=== PATIENT | female | born 1965 | race African-American/Black ===

== ENCOUNTER 2017-11-15 21:59 | Emergency (ER) | payer SELFPAY ==
[2017-11-15 22:24] VITALS: BP 109/73; PULSE 64; RESP 18; TEMP 98.4; O2SAT 100
--- NOTE | 2017-11-15 23:24 | PD ---
HPI Chief Complaint: Psychiatric Symptoms Time Seen by Provider: 22:33 Travel History International Travel<30 days: No Contact w/Intl Traveler<30days: No Traveled to known affect area: No History of Present Illness HPI 52-year-old female with no significant medical history or his reported psychiatric history, presents emergency department as a transfer from [facility] for psychiatric evaluation. Patient is mostly nonverbal. She offers very little information. She was found to be acutely psychotic at the previous hospital. Lab work was without acute concern. Urinalysis and drug screen are added here however patient is unwilling to give us anything, fearful we will give it to [facility] Past Medical History Medical History: Denies Significant Hx ?: Not Past Surgical History Surgical History: Unable to Obtain Social History Alcohol Use: No Tobacco Use: No Allergies-Medications (Allergen,Severity, Reaction): Coded Allergies: No Known Allergies (Unverified , 11/15/17) Review of Systems Except as stated in HPI: all other systems reviewed are Neg Physical Exam Narrative GENERAL: Dressed. SKIN: Focused skin assessment warm/dry. HEAD: Atraumatic. Normocephalic. EYES: Pupils equal and round. No scleral icterus. No injection or drainage. ENT: No nasal bleeding or discharge. Mucous membranes pink and moist. NECK: Trachea midline. No JVD. CARDIOVASCULAR: Regular rate and rhythm. No murmur appreciated. RESPIRATORY: No accessory muscle use. Clear to auscultation. Breath sounds equal bilaterally. MUSCULOSKELETAL: No obvious deformities. No clubbing. No cyanosis. No edema. NEUROLOGICAL: Awake unable to assess cranial nerves. Motor grossly within normal limits. Normal speech. Data Data Last Documented VS Vital Signs Date Time Temp Pulse Resp B/P (MAP) Pulse Ox O2 Delivery O2 Flow Rate FiO2 11/15/17 22:24 98.4 64 18 109/73 (85) 100 Room Air Orders Orders Psych Screen (11/15/17 22:24) Urinalysis - C+S If Indicated (11/15/17 22:34) Drug Screen, Random Urine (11/15/17 22:34) [facility] Medical Decision Making Medical Screen Exam Complete: Yes Emergency Medical Condition: Yes Medical Record Reviewed: Yes Differential Diagnosis Mood disorder versus personality disorder versus adjustment reaction disorder versus psychosis NOS Narrative Course 52-year-old female presents emergency department under a Thomas act as a transfer from [facility] for psychiatric evaluation. Patient is offering me little information. Lab work from her previous facility workup is reviewed without acute concern. Patient is medically cleared to undergo psychiatric screening for further evaluation and disposition. Mental health screening discussed with the patient. Psychiatric screen ordered. Diagnosis Primary Impression: Unspecified psychosis Condition: Kandi Miller Nov 15, 2017 23:24
[2017-11-16 04:54] VITALS: BP 121/59; PULSE 66; RESP 16; O2SAT 100
--- NOTE | 2017-11-16 10:18 | PD ---
History of Present Illness Chief Complaint: Psychiatric Symptoms Time Seen by Provider: 09:45 Travel History International Travel<30 Days: No Contact w/Intl Traveler<30days: No Known affected area: No Legal Status Legal Status: Thomas Act Thomas Act Signed By: [facility] [employer] History of Present Illness: History of Present Illness HPI 52-year-old female with no significant medical history, unknown psychiatric history, presents emergency department as a transfer from [facility] under a Thomas act initiated by law enforcement. As per the report the police were called to a commercial property in reference to a suspicious person. When they arrived there the patient was found walking down the sidewalk not seen a word. She is described as" just walking with a blank look on her face". She did not answer questions. Upon arrival to [facility] the patient remained mostly nonverbal. She refused to provide a urine sample stating that she was afraid he was going to [facility]. Patient here at [facility] has continued to refuse to provide urine sample and has remain mostly noncommunicative. EMR is reviewed. No previous contact with [facility] psychiatry. Patient is seen. She is awake and is found eating part of her breakfast. She has a very flat affect. Appears internally preoccupied. She does not answer any questions and states "is this a test and I am responsible for ending this test." Patient does not answer or provide any other information. Telephone call to her mother, Joseline at [phone] to obtain information. Mother states that the patient has no previous psychiatric history and is currently not taking any medications. States that her difficulties began approximately 5 years ago when she began to develop different allergies which she believed where from the result of mold and dust at her job. She began to seek medical attention for her allergies. 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 Her mother has been living with her for the last 3 years and states that the patient has had increase in symptoms for the past few weeks. She has been more isolative, withdrawn, not eating as much and that for the past week she has not been sleeping well. As far as the mother is concerned she has not had treatment for her condition. [facility] Past Medical History Medical History: Denies Significant Hx ?: Not Past Surgical History Surgical History: Unable to Obtain Psychiatric History Psychiatric History Hx Psychiatric Treatment: NONE History of Inpatient Treatment: No Guns or firearms in home: No Social History . 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 She lives with her mother. Hx Alcohol Use: No Hx Tobacco Use: No Hx Substance Use: No Hx of Substance Use Treatment: No Family Psychiatric History None reported Allergies-Medications (Allergen,Severity, Reaction): Coded Allergies: No Known Allergies (Unverified , 11/15/17) Review of Systems ROS Limitations: Psychotic Mental Status Examination Appearance: Other (Wearing [facility] with a blanket and tied around her upper shoulders) Consciousness: Alert Orientation: x4 (Unable to assess) Motor Activity: Normal gait Speech: Other (Mostly noncommunicative) Language: Other (Mostly nonverbal) Fund of Knowledge: Poor (Unable to assess) Attention and Concentration: Inadequate Memory: Impaired Mood: Other (Unable to determine) Affect: Blunt Thought Process & Associations: Other (Unable to assess) Thought Content: Other (Focused on having allergies) Hallucination Type: Other (Appears internally preoccupied) Delusion Type: None, Other Mental Status Exam Remarks Unable to complete mental status due to patient being nonverbal. [facility] Medical Decision Making Medical Record Reviewed: Yes Assessment/Plan 52-year-old female with no significant medical history, unknown psychiatric history, presents emergency department as a transfer from [facility] under a Thomas act initiated by law enforcement. As per the report the police were called to a commercial property in reference to a suspicious person. When they arrived there the patient was found walking down the sidewalk not seen a word. She is described as" just walking with a blank look on her face". She did not answer questions. Patient appears to be internally preoccupied. She has remained nonverbal for the most part. Her only answer was stating if this was a tests and that she had the ability to terminate the test. Patient will remain under the [employer] act she is placed on [facility] list for further evaluation and treatment. Orders Orders Psych Screen (11/15/17 22:24) Urinalysis - C+S If Indicated (11/15/17 22:34) Drug Screen, Random Urine (11/15/17 22:34) Diet Regular Basic (11/16/17 Breakfast) Results Vital Signs Date Time Temp Pulse Resp B/P (MAP) Pulse Ox O2 Delivery O2 Flow Rate FiO2 11/16/17 04:54 66 16 121/59 (79) 100 Room Air 11/15/17 22:24 98.4 64 18 109/73 (85) 100 Room Air Diagnosis Primary Impression: Unspecified psychosis Med/ Other Pt Specific Info: No Meds Exist/No RX given Disposition: 70 TRANSFER TO OTHER FACILITY ([facility]) Condition: Stable Abbie Grant [employer]CH[employer] Nov 16, 2017 10:18
[2017-11-16 11:03] VITALS: BP 117/68; PULSE 75; RESP 18; O2SAT 99
== END 2017-11-16 13:53 ==
LOC: NEPJ 21:59
DX: F29 Unspecified psychosis not due to a substance or known physiological condition (principal)
CPT/HCPCS: 99285